=== PATIENT | male | born 1980 | race Caucasian/White ===

== ENCOUNTER 2019-01-04 11:19 | Emergency (ER) | payer SELFPAY ==
[~2019-01-04] VITALS: Ht 185.4 cm; Wt 81.6 kg
[2019-01-04 11:26] VITALS: BP 129/79
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
== END 2019-01-04 14:00 | disposition home or self-care (01) ==
LOC: ER 11:19
DX: S20.212A Contusion of left front wall of thorax, initial encounter (principal); S50.812A Abrasion of left forearm, initial encounter; F31.9 Bipolar disorder, unspecified; V03.90XA Pedestrian on foot injured in collision with car, pick-up truck or van, unspecified whether traffic or nontraffic accident, initial encounter; Y93.89 Activity, other specified; Y92.410 Unspecified street and highway as the place of occurrence of the external cause; Y99.8 Other external cause status
CPT/HCPCS: 71101; 99284